=== PATIENT | female | born 1945 | race Caucasian/White ===

== ENCOUNTER → 2016-10-05 12:29 | Outpatient (CLI) | payer MEDICARE, BC ==
[2015-04-17 13:30] VITALS: BMI 22.9
[~2016-10-05 12:29] MED LIST: ASPIRIN325 MG PO; BAYER CHEWABLE81 MG PO; BIOTIN5 MG PO; CENTRUM SILVER1 TA2 PO; CO Q-10100 MG PO; CO Q-10400 MG; CRESTOR5 MG PO; EFFIENT10 MG PO; ESTER-C 500 MG1 TAB PO; FLUTICASONE PRO16 GM NASAL; KLONOPIN0.5 MG PO; LEVOTHROID25 MCG PO; MAGNESIUM OXID500 MG PO; NIASPAN500 MG PO; NITROSTAT0.4 MG SL; PLAVIX75 MG PO; TIROSINT88 MCG PO; VITAMIN C WIT1000 MG PO; VITAMIN D31000 UNI2 PO; ZETIA10 MG PO; ZYLOPRIM100 MG PO
== END | disposition home or self-care (01) ==
LOC: D.RAD 12:29
DX: S09.93XA Unspecified injury of face, initial encounter (principal); W19.XXXA Unspecified fall, initial encounter

== ENCOUNTER → 2017-04-17 12:46 | Outpatient (CLI) | payer MEDICARE, BC ==
[2015-04-17 13:30] VITALS: BMI 22.9
== END | disposition home or self-care (01) ==
LOC: D.CT 12:46
DX: S09.90XA Unspecified injury of head, initial encounter (principal); X58.XXXA Exposure to other specified factors, initial encounter; Y93.89 Activity, other specified; Y92.029 Unspecified place in mobile home as the place of occurrence of the external cause

== ENCOUNTER 2017-10-03 00:45 | Emergency (ER) | payer MEDICARE, BC ==
[2015-04-17 13:30] VITALS: BMI 22.9
[2017-10-03 01:24] LABS: BASOPHILS 0.6 % (0-2); EOSINOPHILS 1.2 % (0-7); HEMATOCRIT 41.4 % (36.0-48.0); HEMOGLOBIN 14.2 g/dL (12-16); IMMATURE GRANULOCYTES 1.2 % (0-5); LYMPHOCYTES 40.8 % (15-50); MCH 31.6 pg (26.0-34.0); MCHC 34.3 g/dL (31.0-37.0); MEAN PLATELET VOLUME 10.6 fL (7.4-10.4); MONOCYTES 7.4 % (2-11); NEUTROPHILS 48.8 % (40-80); PLATELET COUNT 273 10x3/uL (130-400); RDW 13.3 % (11.5-14.5); WBC 8.3 10x3/uL (4.8-10.8)
[2017-10-03 01:36] LABS: APTT 24.6 SECONDS (22.8-39.4); INR 0.93 (0.85-1.17); PROTIME 12.1 SECONDS (11.6-15.0)
[2017-10-03 01:44] LABS: ALBUMIN 3.8 g/dL (3.4-5.0); ALKALINE PHOSPHATASE 66 U/L (46-116); ALT (SGPT) 28 U/L (10-68); CALC OSMOLALITY 265 mosm/kg (275-300); CALCIUM 8.8 mg/dL (8.5-10.1); CARBON DIOXIDE 23.7 mmol/L (21.0-32.0); CHLORIDE - SERUM 99 mmol/L (98-107); CREATININE - SERUM 0.6 mg/dL (0.6-1.3); GLUCOSE 88 mg/dL (74-106); POTASSIUM - SERUM 3.8 mmol/L (3.5-5.1); PROTEIN - SERUM 7.1 g/dL (6.4-8.2); SODIUM 133 mmol/L (136-145); UREA NITROGEN 15 mg/dL (7-18); eGFR NON AFRICAN AMERICAN > 90 mL/min (90-120)
[2017-10-03 01:56] LABS: CKMB 1.3 U/L (0.0-3.6); CREATINE KINASE 92 UL (21-215); TROPONIN-I < 0.017 ng/mL (0.000-0.060)
[2017-10-03 02:39] LABS: APPEARANCE CLEAR (CLEAR); BILIRUBIN NEGATIVE (NEGATIVE); COLOR STRAW (YELLOW); GLUCOSE NEGATIVE (NEGATIVE); KETONE NEGATIVE (NEGATIVE); NITRITE NEGATIVE (NEGATIVE); PROTEIN NEGATIVE (NEGATIVE); SPECIFIC GRAVITY 1.005 (1.005-1.020); UROBILINOGEN NORMAL (NORMAL)
[2017-10-03 02:40] LABS: BACTERIA NONE SEEN /hpf (NONE SEEN); EPITHELIAL CELLS NSEEN /hpf (0-5); RED CELLS - URINE 0-5 /hpf (0-5); WHITE CELLS - URINE NSEEN /hpf (0-5)
== END 2017-10-03 06:36 | disposition short-term general hospital (02) ==
LOC: D.ER 00:45
PROVIDERS: Family Medicine
DX: R20.2 Paresthesia of skin (principal); Z86.73 Personal history of transient ischemic attack (TIA), and cerebral infarction without residual deficits